=== PATIENT | female | born 1980 ===

== ENCOUNTER 2021-07-18 12:24 | Outpatient (CLI) | payer OTHER | END 2021-07-18 13:41 | disposition home or self-care (01) | LOC: NST 12:24 | PROVIDERS: ATTEND Obstetrics & Gynecology | DX: Z34.83 Encounter for supervision of other normal pregnancy, third trimester (principal) ==

== ENCOUNTER 2021-08-23 10:50 | Outpatient (CLI) | payer OTHER | END 2021-08-23 11:29 | disposition home or self-care (01) | LOC: NST 10:50 | PROVIDERS: ATTEND Obstetrics & Gynecology Maternal & Fetal Medicine | DX: Z34.83 Encounter for supervision of other normal pregnancy, third trimester (principal) ==

== ENCOUNTER 2021-08-30 14:00 | Inpatient (IN) | payer OTHER ==
[~2021-08-30] VITALS: Ht 160 cm; Wt 3.2 kg
[2021-09-06] MEDS ORDERED: PRENATAL TABLE1 EAC3 (17:03)
[2021-09-06] MEDS ORDERED: PEPCID AC10 MG (17:04)
[2021-09-06] MEDS ORDERED: ADULT LOW DOSE81 M1 (17:04)
[2021-09-06] MEDS ORDERED: CALCIUM500 M1 (17:04)
== END 2021-09-09 13:32 | disposition home or self-care (01) | DRG 788 ==
LOC: SURH 08-31 14:00 → LDR 09-06 14:07 → OB/GYN 09-06 14:07 → O/R 09-07 09:41 → OB/GYN 09-07 10:11
PROVIDERS: ADMIT Obstetrics & Gynecology Maternal & Fetal Medicine; ATTEND Obstetrics & Gynecology Maternal & Fetal Medicine
PROC: 10D00Z1 Extraction of Products of Conception, Low, Open Approach (ICD-10-PCS; principal; 2021-09-06)
PROC: 4A1HXCZ Monitoring of Products of Conception, Cardiac Rate, External Approach (ICD-10-PCS; 2021-09-06)
DX: O36.8130 Decreased fetal movements, third trimester, not applicable or unspecified (principal); O48.0 Post-term pregnancy; Z3A.41 41 weeks gestation of pregnancy; Z37.0 Single live birth; Z20.822 Contact with and (suspected) exposure to COVID-19

== ENCOUNTER 2021-09-02 10:40 | Outpatient (CLI) | payer OTHER | END 2021-09-02 11:08 | disposition home or self-care (01) | LOC: NST 10:40 | PROVIDERS: ATTEND Obstetrics & Gynecology | DX: Z34.83 Encounter for supervision of other normal pregnancy, third trimester (principal) ==

== ENCOUNTER 2021-09-06 11:00 | Outpatient (CLI) | payer OTHER ==
[2021-09-06] MEDS ORDERED: PRENATAL TABLE1 EAC3 (17:03)
[2021-09-06] MEDS ORDERED: ADULT LOW DOSE81 M1 (17:04)
[2021-09-06] MEDS ORDERED: CALCIUM500 M1 (17:04)
[2021-09-06] MEDS ORDERED: PEPCID AC10 MG (17:04)
== END 2021-09-06 11:53 | disposition home or self-care (01) ==
LOC: NST 11:00
PROVIDERS: ATTEND Obstetrics & Gynecology
DX: Z34.83 Encounter for supervision of other normal pregnancy, third trimester (principal)